=== PATIENT | female | born 1935 | race Caucasian/White ===

== ENCOUNTER 2024-06-02 08:54 | Outpatient (CLI) | payer OTHER ==
[2024-06-02] MEDS ORDERED: Iopamidol 300 61% 100 ML VIAL FS ONE (10:23)
== END 2024-06-02 08:55 | disposition home or self-care (01) ==
LOC: CSHCT 08:54
PROVIDERS: ATTEND Family Medicine
DX: R68.81 Early satiety (principal); R10.84 Generalized abdominal pain; K86.9 Disease of pancreas, unspecified; K44.9 Diaphragmatic hernia without obstruction or gangrene; K57.50 Diverticulosis of both small and large intestine without perforation or abscess without bleeding
CPT/HCPCS: 36415; 74160; 82565; Q9967